=== PATIENT | female | born 1965 | race Caucasian/White ===

== ENCOUNTER → 2018-05-13 | Outpatient (CLI) | payer OTHER ==
[~2018-05-13] MED LIST: FLUO20CA19 PO; LISI-170 PO
[2018-05-13 11:42] LABS: BASOPHILS # (AUTO) 0.13 x10^3/uL (0-0.1); BASOPHILS % (AUTO) 2 % (0-1); EOSINOPHILS # (AUTO) 0.04 x10^3/uL (0-0.4); EOSINOPHILS % (AUTO) 1 % (1-7); LYMPHOCYTES # (AUTO) 2.13 x10^3/uL (1-3.4); LYMPHOCYTES % (AUTO) 31 % (22-44); MD NO; MEAN CORPUSCULAR HEMOGLOBIN 37.3 pg (27.0-34.8); MEAN CORPUSCULAR HGB CONC 34.4 g/dL (32.4-35.8); MEAN CORPUSCULAR VOLUME 108.5 fL (80-100); MEAN PLATELET VOLUME 8.7 fL (7.4-10.4); MONOCYTES # (AUTO) 0.49 x10^3/uL (0.2-0.8); MONOCYTES % (AUTO) 7 % (2-9); NEUTROPHILS # (AUTO) 4.04 x10^3/uL (1.8-6.8); NEUTROPHILS % (AUTO) 59 % (42-75); PLATELET COUNT 244 x10^3/uL (130-400); RED BLOOD COUNT 4.45 x10^6/uL (3.82-5.3); RED CELL DISTRIBUTION WIDTH 15.9 % (9.6-15.2)
[2018-05-13 12:36] LABS: ANION GAP 8 mmol/L (5-15); CALCIUM 9.2 mg/dL (8.5-10.1); CHLORIDE 102 mmol/L (98-107)
[2018-05-13 12:42] LABS: ALANINE AMINOTRANSFERASE 60 U/L (12-78); ALKALINE PHOSPHATASE 154 U/L (45-117); BILIRUBIN,TOTAL 0.9 mg/dL (0.2-1.0); TOTAL PROTEIN 7.4 g/dL (6.4-8.2)
[2018-05-13 12:43] LABS: MICROSCOPIC INDICATED
== END | disposition home or self-care (01) ==
LOC: STAR 10:26
PROVIDERS: ATTEND Obstetrics & Gynecology Gynecology
DX: Z90.710 Acquired absence of both cervix and uterus (principal); Z90.722 Acquired absence of ovaries, bilateral
CPT/HCPCS: 36415; 80053; 81001; 84703; 85025

== ENCOUNTER 2018-05-19 05:32 | Observation (INO) | payer OTHER ==
[~2018-05-19] VITALS: Ht 157.5 cm; Wt 77.9 kg
[2018-05-19] MEDS ORDERED: LACTATED RINGERS 1,000 ML IV SCH (06:14)
[2018-05-19 06:18] VITALS: BP 156/92
[2018-05-19 06:35] LABS: HCG UR SG 1.017 (1.003-1.030)
[2018-05-19] MEDS ORDERED: INDIGO CARMINE 0.8%, 5ML ONE (06:36)
[2018-05-19] MEDS ORDERED: LIDOCAINE/PF 1%, 30ML ONE (06:37)
[2018-05-19] MEDS ORDERED: EPINEPHRINE 1 MG/ML, 1ML ONE (06:37)
[2018-05-19] MEDS ORDERED: FENTANYL PF 250 MCG/5ML ONE (07:02)
[2018-05-19] MEDS ORDERED: MIDAZOLAM 1 MG/ML, 2ML ONE (07:02)
[2018-05-19] MEDS ORDERED: PROPOFOL 10 MG/ML, 20ML ONE (07:24)
[2018-05-19] MEDS ORDERED: ROCURONIUM 10 MG/ML,10ML ONE (07:24)
[2018-05-19] MEDS ORDERED: GLYCOPYRROLATE 0.2MG/1ML, 5ML ONE (07:24)
[2018-05-19] MEDS ORDERED: CEFAZOLIN 1,000 MG ONE (07:24)
[2018-05-19] MEDS ORDERED: ONDANSETRON 2MG/ML, 2ML ONE (07:24)
[2018-05-19] MEDS ORDERED: DEXAMETHASONE 4 MG/ML, 1ML ONE (07:24)
[2018-05-19] MEDS ORDERED: KETOROLAC 30 MG/1 ML ONE (07:24)
[2018-05-19] MEDS ORDERED: NEOSTIGMINE 1 MG/ML, 10ML ONE (07:24)
[2018-05-19] MEDS ORDERED: SUCCINYLCHOLINE 20 MG/ML, 10ML ONE (07:24)
[2018-05-19] MEDS ORDERED: ACETAMINOPHEN 500 MG TABLET PO ONE (07:30)
[2018-05-19] MEDS ORDERED: GABAPENTIN 300 MG CAPSULE PO ONE (07:30)
[2018-05-19] MEDS ORDERED: SCOPOLAMINE PATCH, 1.5MG PATCH.TD72 TD ONE (07:30)
[2018-05-19] MEDS ORDERED: LABETALOL 5MG/ML, 20ML IV PRN (08:30)
[2018-05-19] MEDS ORDERED: hydrALAzine 20 MG/ML, 1ML IV PRN (08:30)
[2018-05-19] MEDS ORDERED: ALBUTEROL SULFATE 2.5 MG/3 ML NPPB PRN (08:30)
[2018-05-19] MEDS ORDERED: MEPERIDINE/PF 25MG/0.5ML IVPush PRN (08:30)
[2018-05-19] MEDS ORDERED: KETOROLAC 30 MG/1 ML IV PRN (08:30)
[2018-05-19] MEDS ORDERED: OXYcodone 5 MG/5 ML ORAL.SOL UDC PO PRN (08:30)
[2018-05-19] MEDS ORDERED: METOCLOPRAMIDE 5 MG/ML, 2ML IV PRN (08:30)
[2018-05-19] MEDS ORDERED: HYDROmorphone 1 MG/ML, 1ML IV PRN (08:30)
[2018-05-19] MEDS ORDERED: PROMETHAZINE 25 MG/ML, 1ML IV PRN (08:30)
[2018-05-19] MEDS ORDERED: ONDANSETRON 2MG/ML, 2ML IVPush PRN ×2 (08:30→12:30)
[2018-05-19] MEDS ORDERED: FENTANYL PF 100 MCG/2ML ONE ×2 (10:27→11:11)
[2018-05-19] MEDS ORDERED: OXYcodone 5 MG/5 ML ORAL.SOL UDC ONE (10:28)
[2018-05-19] MEDS: FENTANYL PF 100 MCG/2ML IV PRN ×5 (10:30→11:21)
[2018-05-19] MEDS ORDERED: ALBUTEROL SULFATE 2.5 MG/3 ML ONE (11:01)
[2018-05-19 12:25] VITALS: BP 121/62
[2018-05-19] MEDS: LACTATED RINGERS 1,000 ML IV SCH ×2 (13:50→21:46)
[2018-05-19] MEDS: KETOROLAC 30 MG/1 ML IVPush PRN (15:54)
[2018-05-19 20:09] VITALS: BP 117/74
[2018-05-19 23:30] VITALS: BP 150/70
[2018-05-20 03:05] VITALS: BP 110/63
[2018-05-20] MEDS: LACTATED RINGERS 1,000 ML IV SCH ×3 (04:30→12:15)
[2018-05-20 08:10] VITALS: BP 105/68
[2018-05-20] MEDS: KETOROLAC 30 MG/1 ML IVPush PRN (10:52)
[2018-05-20 13:49] VITALS: BP 104/65
[2018-05-20 20:00] VITALS: BP 116/73
[2018-05-20] MEDS: FLUOXETINE HCL 20 MG CAPSULE PO SCH (21:34)
[2018-05-21 04:00] VITALS: BP 157/88
[2018-05-21 07:04] VITALS: BP 154/77
[2018-05-21] MEDS: FLUOXETINE HCL 20 MG CAPSULE PO SCH (08:10)
[2018-05-21] MEDS ORDERED: HYDR-882 PO (09:32)
[2018-05-21] MEDS ORDERED: LACTATED RINGERS 1,000 ML IV SCH (12:30)
== END 2018-05-21 10:20 | disposition home or self-care (01) ==
LOC: OUT 05:32 → 4NOR 11:58 → OUT 23:22 → DCLOUNGE 05-21 10:12
PROVIDERS: ADMIT Obstetrics & Gynecology Gynecology; ATTEND Obstetrics & Gynecology Gynecology
DX: D27.1 Benign neoplasm of left ovary (principal); G89.29 Other chronic pain; N80.0 Endometriosis of uterus
CPT/HCPCS: 36415; 58571; 74018; 81025; 85014; 88305; 88307; 88331; 94640; 96374; 96376; G0378; J0171; J0330; J0690; J1100; J1885; J2250; J2405; J2704; J2710; J3010; J3490; J7120; J7613